=== PATIENT | female | born 1940 | race Caucasian/White ===

== ENCOUNTER 2017-12-11 10:53 | Emergency (ER) | payer OTHER ==
[~2017-12-11] VITALS: Ht 149.9 cm; Wt 77.6 kg
[~2017-12-11 10:53] MED LIST: ASA81 MG PO; COZAAR100 MG PO; LEVSIN0.125 MG PO; PREVACID15 MG PO; PROTONIX40 M1 PO; PROTONIX40 MG PO; SYNTHROID112 MCG PO; ULTRACET PO; ZANTAC300 MG PO
[2017-12-11] MEDS ORDERED: FOLIC ACID0.4 MG (12:12)
[2017-12-11] MEDS ORDERED: BIOTIN1 MG (12:12)
[2017-12-11] MEDS ORDERED: SYNTHROID88 MCG (12:12)
[2017-12-11] MEDS ORDERED: DIOVAN320 MG (12:13)
[2017-12-11] MEDS ORDERED: CIPRO500 MG/5 M (12:14)
== END 2017-12-11 19:06 | disposition home or self-care (01) ==
LOC: ER 10:53
DX: J18.1 Lobar pneumonia, unspecified organism (principal); R10.12 Left upper quadrant pain

== ENCOUNTER 2018-03-16 12:34 | Emergency (ER) | payer OTHER ==
[~2018-03-16] VITALS: Ht 149.9 cm; Wt 83.5 kg
[~2018-03-16 12:34] MED LIST changes: +BIOTIN1 MG; +CIPRO500 MG/5 M; +DIOVAN320 MG; +FOLIC ACID0.4 MG; +SYNTHROID88 MCG
[2018-03-16] MEDS ORDERED: COZAAR100 MG (13:53)
== END 2018-03-16 17:35 | disposition home or self-care (01) ==
LOC: ER 12:34
DX: K58.8 Other irritable bowel syndrome (principal); K29.60 Other gastritis without bleeding

== ENCOUNTER 2018-07-12 04:00 | Emergency (ER) | payer OTHER ==
[~2018-07-12] VITALS: Ht 149.9 cm; Wt 83.5 kg
[~2018-07-12 04:00] MED LIST changes: +COZAAR100 MG
== END 2018-07-12 13:51 | disposition home or self-care (01) ==
LOC: ER 04:00
DX: K52.89 Other specified noninfective gastroenteritis and colitis (principal); E86.0 Dehydration